=== PATIENT | male | born 1970 ===

== ENCOUNTER → 2024-04-20 14:17 | Outpatient (CLI) | payer OTHER, MEDICAID, SELFPAY ==
[2024-04-20 15:38] LABS: Hematocrit 42.3 % (41-53); Hemoglobin 14.5 g/dL (13.5-17.5); Mean Corpuscular HGB Conc 34.4 % (30-36); Mean Corpuscular Hemoglobin 30.1 PG (26-34); Mean Corpuscular Volume 87.6 fL (80-100); Platelet Count 225 X10^3/uL (150-400); Red Blood Cell Count 4.83 X10^6/uL (4.5-5.9); Red Cell Distribution Width 13.1 % (11.6-14.8); White Blood Cell Count 12.2 X10^3/uL (4.5-11.0)
[2024-04-20 15:43] LABS: Alanine Aminotransferase 47 IU/L (<50); Albumin 4.5 g/dL (3.5-5.0); Albumin Globulin Ratio 1.5 (1.0-2.8); Alkaline Phosphatase 93 U/L (38-126); Aspartate Aminotransferase 29 IU/L (17-59); BUN Creatinine Ratio 12.5 (6-22); Bilirubin Total 1.3 mg/dL (0.2-1.3); Blood Urea Nitrogen 13 mg/dL (9-20); Calcium 10.1 mg/dL (8.4-10.2); Carbon Dioxide 28 mmol/L (22-32); Chloride 101 mmol/L (98-107); Cholesterol 116 mg/dL (140-199); Estimated Glomerular Filt Rate > 60 mL/min (>60); Globulin 3.1 g/dL (1.7-4.1); Glucose 162 mg/dL (70-100); HDL Cholesterol 42 mg/dL (40-60); HEMOLYSIS < 15 (0-50); Hemoglobin A1C% w Est Avg Glu 6.3 % (4.0-6.0); LDL Cholesterol Calculated 33 mg/dL (<100); Potassium 4.7 mmol/L (3.4-5.1); Sodium 137 mmol/L (137-145); Total Protein 7.6 g/dL (6.3-8.2); Triglycerides 206 mg/dL (35-150)
[2024-04-20 16:10] LABS: Prostate Specific Antigen 0.895 ng/mL (0.10-4.00)
[2024-04-20 16:55] LABS: Creatinine Urine Random 156.68 mg/dL
[2024-04-20 17:01] LABS: Microalbumin Urine Random < 0.6 mg/dL (0-1.6)
== END ==
PROVIDERS: PCP Family Medicine; Referring Provider Family Medicine; Visit Provider Family Medicine
DX: I10 Essential (primary) hypertension (principal); I25.10 Atherosclerotic heart disease of native coronary artery without angina pectoris; E11.9 Type 2 diabetes mellitus without complications; Z95.1 Presence of aortocoronary bypass graft; Z86.73 Personal history of transient ischemic attack (TIA), and cerebral infarction without residual deficits; F17.220 Nicotine dependence, chewing tobacco, uncomplicated
CPT/HCPCS: 36415; 80053; 80061; 82043; 82570; 83036; 84153; 85027

== ENCOUNTER 2024-07-18 10:45 | Outpatient (RCR) | payer OTHER, MEDICAID, SELFPAY ==
--- NOTE | 2024-05-21 12:48 | OT.OP.EVAL ---
Visit Care Team Role Provider Type Lois Chowdary DO Attending Provider Physician Family Provider Primary Care Provider Referring Provider Specialty: Family Practice Address: [address] [place] [address], [address], [place], [address] Email: [email or web address] Occupational Therapy Initial Evaluation OT Outpatient Adult Evaluation Start: 05/21/24 12:09 Freq: Status: Active Protocol: Document 05/21/24 12:09 AMS (Rec: 05/21/24 12:47 AMS [id number]) General Information - Adult Plan of Care Dates 05/21/24 - 06/25/24 Insurance Information [employer]; *Max 24 PT/OT PCY Visit Start Time 11:15 Visit Stop Time 11:50 Treatment Setting Outpatient Care Note Type Initial Evaluation Goals Mcfp Goals 1. Maksim will be modified independent with execution of home exercise program referencing written/visual materials as needed. 2. Maksim will present with improved functional abilities; this will be evidenced by reduction in QuickDASH UE Outcome Measure Score of less than 20.00. 3. Maksim will present with improved fine motor coordination of the R hand; this will be evidenced by completing the 9-HPT with the R hand within 50 seconds (vs initial completion within 1 min 18 seconds). Assessment/Plan Treatment Assessment Damien Hallman) is a 54 y. o. male; right hand dominant; referred to outpatient OT d/t residual symptoms of stroke that occurred in November of 2023 . Medical history is significant for HTN; atherosclerotic heart disease; type II diabetes; quadruple bypass (2019). Maksim reported that he resides w/ his girlfriend and his 17 y.o. son ; he tries to remain busy by doing his exercises (walking, practicing handwriting), helping around the house/doing chores (such as doing the dishes/using the senior technical business analyst, vacuuming). 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 There are some STM difficulties which he problem solves by writing things down; may benefit from NURSE ORTHO referral given STM difficulties. QuickDASH UE Outcome Measure Score = 29.55. Good thumb opposition; able to execute bilaterally w/ EO and EC. B UE AROM WFL; symmetrical coordination of UEs with functional range of motion test; (-) R sided lag/ dyscoordination noted. Slight L midline shift w/ bringing hands together above head; able to self-correct 2nd trial without any visual feedback. Symmetrical coordination of bringing hands together at midline infront of body. The 9-Hole Peg Test is a timed test in which 9 pegs are inserted and removed from 9 holes in the pegboard with each hand. It is an assessment that can be used to assess hand dexterity. Maksim completed the test with his L hand in 31 seconds (vs 20.7 +/ - 2.3 sec norm for 50-54 y.o. males) and with his R hand in 1 min 18 sec first trial without elbow proximal stabilization and in 1 min 4 sec second trial w/ elbow proximal stabilization (vs 19. 2 +/- 1.8 sec norm for 50-54 y .o. males). Dynamometer II Strength Testing Results with elbow in 90 degrees Flexion = R ichthyology teacher 85 .0# of force (compared to same -aged peers 113.6 +/- 18.1# of force) versus L ichthyology teacher 102.0# of force (compared to same- aged peers 101.9 +/- 17.0# of force). Dynamometer II Strength Testing Results with Elbow Extended = R ichthyology teacher 80.0# of force versus L ichthyology teacher 93.0# of force. Lateral [place] Pinch = R lateral pinch 22.0# of force (compared to same-aged peers 26.7 +/- 4.4# of force) versus L lateral pinch 23.0# of force (compared to same-aged peers 26.1 +/- 4.2# of force). Tip Pinch = R tip pinch 22.5# of force (compared to same- aged peers 18.3 +/- 4.0# of force) versus L tip pinch 21.5 # of force (compared to same- aged peers 17.8 +/- 3.9# of force). 3-Jaw Pinch = R 3-jaw pinch 22.0# of force (compared to same-aged peers 23.8 +/- 5 .4# of force) versus L 3-jaw pinch 20.0# of force (compared to same-aged peers 24.0 +/- 5 .8# of force). Main concern is handwriting. Handwriting sample obtained. Thumb and 2nd pads positioned on standard width writing tool ; rests on 3rd digit. Reports increased legibility w/ slowing down self/pace of writing. (+) IPJ flexion observed w/ spirals. (+) waviness of lines noted w/ spirals. Please refer to scanned in paperwork for reference. OUtpatient OT to address fine motor coordination of R hand, handwriting, given that this is Maksim' main concern. Length of treatment (weeks) 5 Plan of Care Start Date 05/21/24 Plan of Care End Date 06/25/24 Treatment Frequency Once a Week Therapeutic Contents Active Range of Motion, Adaptive Equipment Education, Functional Activities,Home Exercise Program,Joint Protection,Education,Self-Care ,Therapeutic Activities, Therapeutic Exercises Suggested Referrals Speech Therapy
--- NOTE | 2024-05-31 15:38 | OT.OP.TRT ---
Visit Care Team Role Provider Type Lois Chowdary DO Attending Provider Physician Family Provider Primary Care Provider Referring Provider Specialty: Family Practice Address: [address] [place] [address], [address], [place], [address] Email: [email or web address] Occupational Therapy Treatment Note OT Outpatient Treatment Note - Adult Start: 05/21/24 12:09 Freq: Status: Active Protocol: Document 05/31/24 15:27 AMS (Rec: 05/31/24 15:38 AMS [id number]) OT Outpatient Adult Treatment Note Session Time Visit Start Time 11:15 Visit Stop Time 11:50 Visit Information Plan of Care Dates 05/21/24 - 06/25/24 Insurance Information [employer]; *Max 24 PT/OT PCY Setting Treatment Setting Outpatient Care Visit Type Note Type Treatment Note General Information General Information Damien Hallman) is a 54 y. o. male; right hand dominant; referred to outpatient OT d/t residual symptoms of stroke that occurred in November of 2023 . Medical history is significant for HTN; atherosclerotic heart disease; type II diabetes; quadruple bypass (2019). Maksim reported that he resides w/ his girlfriend and his 17 y.o. son ; he tries to remain busy by doing his exercises (walking, practicing handwriting), helping around the house/doing chores (such as doing the dishes/using the research physiologist, vacuuming). 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 There are some STM difficulties which he problem solves by writing things down; may benefit from UNDERWRITING SPECIALIST referral given STM difficulties. QuickDASH UE Outcome Measure Score = 29.55. - - Objective Objective Measurements Please refer to below for progress towards meeting established OT goals: Electronic Data Processing Auditor Goals 1. Maksim will be modified independent with execution of home exercise program referencing written/visual materials as needed. 2. Maksim will present with improved functional abilities; this will be evidenced by reduction in QuickDASH UE Outcome Measure Score of less than 20.00. 3. Maksim will present with improved fine motor coordination of the R hand; this will be evidenced by completing the 9-HPT with the R hand within 50 seconds (vs initial completion within 1 min 18 seconds). - Treatment 1 Descriptor In-hand manipulation. Thumb coordination. Translation. Rotation. Separation of 2 sides of the hand. CW rotation. x 2. Thumb walk 2nd -> 5th digit. x 1 Oppositional dissociation between digits. x 1 Radial sided obj manip/ rotation. x 2 Exercises 1 Descriptor UEB x 10 min. x 6 min forwards . x 4 min backwards. - Assessment Assessment of Improvement Maksim did quite well w/ UEB; no difficulties w/ initiating and/or maintaining grasp of UE handles despite multiple changes in direction. Orientation cues to machine only. Instructed in use of 1-2 small balls (practice golf ball size vs golf ball size) for in-hand coordination. Discussed proximal stabilization to support in- hand manipulation; did quite well w/ no significant distinction between use of arm rest vs TT for elbow stabilization and intermittent forearm support. Discussed use of TT to support R hand motor planning if concerned re : dropping of the ball/ retrieval. Rec that this exercise be considered for carry-over. Home Exercise Program 05/31/24 = In-hand manipulation w/ use of 2-practice golf balls vs bouncy balls vs golf balls. CW. Thumb walk. Opposition walk. - Plan Therapy Recommendations Advance per Rehabilitation Protocol
--- NOTE | 2024-07-02 15:41 | OT.OPPOC ---
Physical, Occupational & Speech Therapy At [facility] Damien Porter [id number] 1970 Visit Care Team Role Provider Type Lois Chowdary DO Attending Provider Physician Family Provider Primary Care Provider Referring Provider Address: [address] [place] [address], [facility] [address], [place], [address] Occupational Therapy Plan of Care OT Outpatient Adult Evaluation Start: 05/21/24 12:09 Freq: Status: Active Protocol: Document 05/21/24 12:09 [facility] (Rec: 05/21/24 12:47 [facility] [id number]) General Information - Adult Visit Information Plan of Care Dates 05/21/24 - 06/25/24 Insurance Information [employer]; *Max 24 PT/OT PCY Session Time Visit Start Time 11:15 Visit Stop Time 11:50 Setting Treatment Setting Outpatient Care Visit Type Note Type Initial Evaluation Goals Skilled Nursing Goals Learning Developer Goals 1. Maskim will be modified independent with execution of home exercise program referencing written/visual materials as needed. 2. Maksim will present with improved functional abilities; this will be evidenced by reduction in QuickDASH UE Outcome Measure Score of less than 20.00. 3. Maksim will present with improved fine motor coordination of the R hand; this will be evidenced by completing the 9-HPT with the R hand within 50 seconds (vs initial completion within 1 min 18 seconds). Assessment/Plan Assessment Treatment Assessment Damien Hallman) is a 54 y. o. male; right hand dominant; referred to outpatient OT d/t residual symptoms of stroke that occurred in November of 2023 . Medical history is significant for HTN; atherosclerotic heart disease; type II diabetes; quadruple bypass (2019). Maksim reported that he resides w/ his girlfriend and his 17 y.o. son ; he tries to remain busy by doing his exercises (walking, practicing handwriting), helping around the house/doing chores (such as doing the dishes/using the assistant reading teacher, vacuuming). 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 There are some STM difficulties which he problem solves by writing things down; may benefit from HOME BUILDER referral given STM difficulties. QuickDASH UE Outcome Measure Score = 29.55. Good thumb opposition; able to execute bilaterally w/ EO and EC. B UE AROM WFL; symmetrical coordination of UEs with functional range of motion test; (-) R sided lag/ dyscoordination noted. Slight L midline shift w/ bringing hands together above head; able to self-correct 2nd trial without any visual feedback. Symmetrical coordination of bringing hands together at midline infront of body. The 9-Hole Peg Test is a timed test in which 9 pegs are inserted and removed from 9 holes in the pegboard with each hand. It is an assessment that can be used to assess hand dexterity. Maksim completed the test with his L hand in 31 seconds (vs 20.7 +/ - 2.3 sec norm for 50-54 y.o. males) and with his R hand in 1 min 18 sec first trial without elbow proximal stabilization and in 1 min 4 sec second trial w/ elbow proximal stabilization (vs 19. 2 +/- 1.8 sec norm for 50-54 y .o. males). Dynamometer II Strength Testing Results with elbow in 90 degrees Flexion = R substation operator automatic 85 .0# of force (compared to same -aged peers 113.6 +/- 18.1# of force) versus L substation operator automatic 102.0# of force (compared to same- aged peers 101.9 +/- 17.0# of force). Dynamometer II Strength Testing Results with Elbow Extended = R substation operator automatic 80.0# of force versus L substation operator automatic 93.0# of force. Lateral [place] Pinch = R lateral pinch 22.0# of force (compared to same-aged peers 26.7 +/- 4.4# of force) versus L lateral pinch 23.0# of force (compared to same-aged peers 26.1 +/- 4.2# of force). Tip Pinch = R tip pinch 22.5# of force (compared to same- aged peers 18.3 +/- 4.0# of force) versus L tip pinch 21.5 # of force (compared to same- aged peers 17.8 +/- 3.9# of force). 3-Jaw Pinch = R 3-jaw pinch 22.0# of force (compared to same-aged peers 23.8 +/- 5 .4# of force) versus L 3-jaw pinch 20.0# of force (compared to same-aged peers 24.0 +/- 5 .8# of force). Main concern is handwriting. Handwriting sample obtained. Thumb and 2nd pads positioned on standard width writing tool ; rests on 3rd digit. Reports increased legibility w/ slowing down self/pace of writing. (+) IPJ flexion observed w/ spirals. (+) waviness of lines noted w/ spirals. Please refer to scanned in paperwork for reference. OUtpatient OT to address fine motor coordination of R hand, handwriting, given that this is Maksim' main concern. Plan Length of treatment (weeks) 5 Plan of Care Start Date 05/21/24 Plan of Care End Date 06/25/24 Treatment Frequency Once a Week Therapeutic Contents Active Range of Motion, Adaptive Equipment Education, Functional Activities,Home Exercise Program,Joint Protection,Education,Self-Care ,Therapeutic Activities, Therapeutic Exercises Suggested Referrals Speech Therapy Functional Wrist/Hand Scan Hand Side Sensory Assessment Sensory Profile2 OT Outpatient Treatment Note - Adult Start: 05/21/24 12:09 Freq: Status: Active Protocol: Document 07/02/24 15:32 [facility] (Rec: 07/02/24 15:41 [facility] [id number]) OT Outpatient Adult Treatment Note Session Time Visit Start Time 11:15 Visit Stop Time 11:50 Visit Information Plan of Care Dates 06/25/24 - 07/30/24 Insurance Information [employer]; *Max 24 PT/OT PCY Setting Treatment Setting Outpatient Care Visit Type Note Type Progress Note General Information General Information Damien Hallman) is a 54 y. o. male; right hand dominant; referred to outpatient OT d/t residual symptoms of stroke that occurred in November of 2023 . Medical history is significant for HTN; atherosclerotic heart disease; type II diabetes; quadruple bypass (2019). Maksim reported that he resides w/ his girlfriend (Nicole) and his 17 y. o. son; he tries to remain busy by doing his exercises ( walking, practicing handwriting), helping around the house/doing chores (such as doing the dishes/using the assistant reading teacher, vacuuming). 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 There are some STM difficulties which he problem solves by writing things down; may benefit from HOME BUILDER referral given STM difficulties. QuickDASH UE Outcome Measure Score = 29.55. - Subjective Identification Type Name Observations Maksim reports that he is using ping pong balls at home; he stated that he has broken quite a few of them and that they are much litigation legal secretary then the practice foam/golf balls that he has been using in clinic. He reported impaired sensation of the R hand primarily of the thumb; he stated that it seems to get better as the day goes on. - Objective Objective Measurements Please refer to below for progress towards meeting established OT goals: Learning Developer Goals 1. Maksim will be modified independent with execution of home exercise program referencing written/visual materials as needed. 07/02/24 = 50% met 2. Maksim will present with improved functional abilities; this will be evidenced by reduction in QuickDASH UE Outcome Measure Score of less than 20.00. 3. Maksim will present with improved fine motor coordination of the R hand; this will be evidenced by completing the 9-HPT with the R hand within 50 seconds (vs initial completion within 1 min 18 seconds). - Treatment 1 Descriptor In-hand manipulation. Thumb coordination. Translation. Rotation. Separation of 2 sides of the hand. CW rotation. x 5 CCW rotation. x 5 Thumb walk 2nd -> 5th digit. x 5 Oppositional dissociation between digits. x 5 Tossing ball between hands. x 20. Ping pong ball single bounce between hands. x 20. Ping pong ball single bounce onto TT, forearm pronation. x 20. Forearm supination. x 20. Exercises 1 Descriptor UEB x 10 min. x 6 min forwards . x 4 min backwards. - Assessment Assessment of Improvement Maksim has required less proximal UE support for success w/ R hand in-hand manipulation activities, as well as w/ unilateral R UE and bimanual UE eye-hand coordination activities. Clinician advanced unimanual and bimanual UE exercises in this date; rec execution of in -hand manipulation and eye- hand coordination activities over table to support management of foam or ping pong balls. Cont outpatient OT services rec to advance HEP as tolerated. Home Exercise Program 05/31/24 = In-hand manipulation w/ use of 2-practice golf balls vs bouncy balls vs golf balls. CW. Thumb walk. Opposition walk. - Plan Therapy Recommendations Advance per Rehabilitation Protocol Comment 5 weeks Frequency of Treatment Once a Week Therapeutic Contents Active Range of Motion, Functional Activities,Home Exercise Program,Joint Protection,Manual Therapy, Education,Self-Care, Therapeutic Activities, Therapeutic Exercises Electronically Signed by: Delfina Celis OT 07/02/24 6401 If you are in agreement with this Plan of Care, please return a signed and dated copy. I have reviewed this Plan of Care and certify that the skilled therapy services above are required to meet the patient?s needs. Physician Signature Date Printed Name and Credentials Clinical Instructor Signature Printed Name and Credentials
--- NOTE | 2024-07-10 12:31 | OT.OP.TRT ---
Visit Care Team Role Provider Type Lois Chowdary DO Attending Provider Physician Family Provider Primary Care Provider Referring Provider Specialty: Family Practice Address: [address] [place] [address], [address], [place], [address] Email: [email or web address] Occupational Therapy Treatment Note OT Outpatient Treatment Note - Adult Start: 05/21/24 12:09 Freq: Status: Active Protocol: Document 07/10/24 12:26 AMS (Rec: 07/10/24 12:30 AMS [id number]) OT Outpatient Adult Treatment Note Session Time Visit Start Time 11:45 Visit Stop Time 12:15 Visit Information Plan of Care Dates 06/25/24 - 07/30/24 Insurance Information [employer]; *Max 24 PT/OT PCY Setting Treatment Setting Outpatient Care Visit Type Note Type Treatment Note General Information General Information Damien Hallman) is a 54 y. o. male; right hand dominant; referred to outpatient OT d/t residual symptoms of stroke that occurred in November of 2023 . Medical history is significant for HTN; atherosclerotic heart disease; type II diabetes; quadruple bypass (2019). Maksim reported that he resides w/ his girlfriend (Nicole) and his 17 y. o. son; he tries to remain busy by doing his exercises ( walking, practicing handwriting), helping around the house/doing chores (such as doing the dishes/using the french teacher, vacuuming). 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 There are some STM difficulties which he problem solves by writing things down; may benefit from SENIOR CORPORATE RECRUITER referral given STM difficulties. QuickDASH UE Outcome Measure Score = 29.55. - Subjective Identification Type Name Observations Maksim reports that he is using ping pong balls at home; he stated that he has broken quite a few of them and that they are much water tester then the practice foam/golf balls that he has been using in clinic. He reported impaired sensation of the R hand primarily of the thumb; he stated that it seems to get better as the day goes on. - Objective Objective Measurements Please refer to below for progress towards meeting established OT goals: Finance Associate Goals 1. Maksim will be modified independent with execution of home exercise program referencing written/visual materials as needed. 07/02/24 = 50% met 2. Maksim will present with improved functional abilities; this will be evidenced by reduction in QuickDASH UE Outcome Measure Score of less than 20.00. 3. Maksim will present with improved fine motor coordination of the R hand; this will be evidenced by completing the 9-HPT with the R hand within 50 seconds (vs initial completion within 1 min 18 seconds). - Treatment 2 Descriptor Eye-hand coordination. 500 grams. Angled Trampoline. Standing. R handed throw and catch. 1 x 10. Alt throw and catch. 2 x 10. Square. 3 x 10. 1 Descriptor In-hand manipulation. Thumb coordination. Translation. Rotation. Separation of 2 sides of the hand. CW rotation. x 5 CCW rotation. x 5 N/A 07/10/24 Thumb walk 2nd -> 5th digit. x 5 Oppositional dissociation between digits. x 5 Tossing ball between hands. x 20. Ping pong ball single bounce between hands. x 20. Ping pong ball single bounce onto TT, forearm pronation. x 20. Forearm supination. x 20. Exercises 1 Descriptor UEB x 10 min. Seated. Height # 4. x 5 min forwards. x 5 min backwards. - Assessment Assessment of Improvement Maksim reported that Nicole has ordered weighted stress balls for practicing of in-hand manipulation; she ordered them through [employer]; they are awaiting their arrival. Did quite well w/ eye-hand coordination activities in standing w/ use of angled trampoline and 500 grams weighted ball. Cont outpatient OT services rec to advance HEP as tolerated. Home Exercise Program 05/31/24 = In-hand manipulation w/ use of 2-practice golf balls vs bouncy balls vs golf balls. CW. Thumb walk. Opposition walk. - Plan Therapy Recommendations Advance per Rehabilitation Protocol
--- NOTE | 2024-07-18 12:21 | OT.OP.TRT ---
Visit Care Team Role Provider Type Lois Chowdary DO Attending Provider Physician Family Provider Primary Care Provider Referring Provider Specialty: Family Practice Address: [address] [place] [address], [address], [place], [address] Email: [email or web address] Occupational Therapy Treatment Note OT Outpatient Treatment Note - Adult Start: 05/21/24 12:09 Freq: Status: Active Protocol: Document 07/18/24 12:17 AMS (Rec: 07/18/24 12:21 AMS [id number]) OT Outpatient Adult Treatment Note Session Time Visit Start Time 11:00 Visit Stop Time 11:30 Visit Information Plan of Care Dates 06/25/24 - 07/30/24 Insurance Information [employer]; *Max 24 PT/OT PCY Setting Treatment Setting Outpatient Care Visit Type Note Type Treatment Note General Information General Information Damien Hallman) is a 54 y. o. male; right hand dominant; referred to outpatient OT d/t residual symptoms of stroke that occurred in November of 2023 . Medical history is significant for HTN; atherosclerotic heart disease; type II diabetes; quadruple bypass (2019). Maksim reported that he resides w/ his girlfriend (Nicole) and his 17 y. o. son; he tries to remain busy by doing his exercises ( walking, practicing handwriting), helping around the house/doing chores (such as doing the dishes/using the search engine marketing manager, vacuuming). 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 There are some STM difficulties which he problem solves by writing things down; may benefit from INSEAM TRIMMER referral given STM difficulties. QuickDASH UE Outcome Measure Score = 29.55. - Subjective Identification Type Name Observations Maksim reports that he is using ping pong balls at home; he stated that he has broken quite a few of them. He reported impaired sensation of the R hand primarily of the thumb; he stated that it seems to get better as the day goes on. - Objective Objective Measurements Please refer to below for progress towards meeting established OT goals: Coding Clerk Goals 1. Maksim will be modified independent with execution of home exercise program referencing written/visual materials as needed. 07/02/24 = 50% met 2. Maksim will present with improved functional abilities; this will be evidenced by reduction in QuickDASH UE Outcome Measure Score of less than 20.00. 3. Maksim will present with improved fine motor coordination of the R hand; this will be evidenced by completing the 9-HPT with the R hand within 50 seconds (vs initial completion within 1 min 18 seconds). - Treatment 2 Descriptor Eye-hand coordination. 3.3# weighted spherical ball. Angled Trampoline. Standing. R handed throw and catch. 2 x 10. Alt throw and catch. 3 x 10. R handed throw and catch. Formation of a square. 3 x 10. 1 Descriptor In-hand manipulation. Thumb coordination. Translation. Rotation. Separation of 2 sides of the hand. CW rotation. x 5 CCW rotation. x 5 Ping pong ball single bounce onto TT, forearm pronation. x 20. N/A 07/10/24 Thumb walk 2nd -> 5th digit. x 5 Oppositional dissociation between digits. x 5 Tossing ball between hands. x 20. Ping pong ball single bounce between hands. x 20. Ping pong ball single bounce onto TT, forearm pronation. x 20. Forearm supination. x 20. Exercises 1 Descriptor UEB x 10 min. Seated. Height # 4. x 5 min forwards. x 5 min backwards. - Assessment Assessment of Improvement Reports primarily using ping pong balls at home for in-hand manipulation/eye-hand coordination activities; reports breaking a number of them. Did quite well w/ eye- hand coordination activities in standing w/ use of angled trampoline and 3.3# weighted spherical ball in session. Cont outpatient OT services rec to advance HEP as tolerated. Home Exercise Program 05/31/24 = In-hand manipulation w/ use of 2-practice golf balls vs bouncy balls vs golf balls. CW. Thumb walk. Opposition walk. - Plan Therapy Recommendations Advance per Rehabilitation Protocol
--- NOTE | 2024-08-20 12:32 | OT.OP.DC ---
Visit Care Team Role Provider Type Lois Chowdary DO Attending Provider Physician Family Provider Primary Care Provider Referring Provider Address: [address] [place] [address], [address], [place], [address] Email: [email or web address] Outpatient OT Outpatient Adult Evaluation Start: 05/21/24 12:09 Freq: Status: Active Protocol: Document 05/21/24 12:09 AMS (Rec: 05/21/24 12:47 AMS [id number]) General Information - Adult Visit Information Plan of Care Dates 05/21/24 - 06/25/24 Insurance Information [employer]; *Max 24 PT/OT PCY Session Time Visit Start Time 11:15 Visit Stop Time 11:50 Setting Treatment Setting Outpatient Care Visit Type Note Type Initial Evaluation Goals Acute Care Nurse Goals Acute Care Nurse Goals 1. Maksim will be modified independent with execution of home exercise program referencing written/visual materials as needed. 2. Maksim will present with improved functional abilities; this will be evidenced by reduction in QuickDASH UE Outcome Measure Score of less than 20.00. 3. Maksim will present with improved fine motor coordination of the R hand; this will be evidenced by completing the 9-HPT with the R hand within 50 seconds (vs initial completion within 1 min 18 seconds). Assessment/Plan Assessment Treatment Assessment Damien Hallman) is a 54 y. o. male; right hand dominant; referred to outpatient OT d/t residual symptoms of stroke that occurred in November of 2023 . Medical history is significant for HTN; atherosclerotic heart disease; type II diabetes; quadruple bypass (2019). Maksim reported that he resides w/ his girlfriend and his 17 y.o. son ; he tries to remain busy by doing his exercises (walking, practicing handwriting), helping around the house/doing chores (such as doing the dishes/using the local area network administrator, vacuuming). 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 There are some STM difficulties which he problem solves by writing things down; may benefit from PEANUT FARMER referral given STM difficulties. QuickDASH UE Outcome Measure Score = 29.55. Good thumb opposition; able to execute bilaterally w/ EO and EC. B UE AROM WFL; symmetrical coordination of UEs with functional range of motion test; (-) R sided lag/ dyscoordination noted. Slight L midline shift w/ bringing hands together above head; able to self-correct 2nd trial without any visual feedback. Symmetrical coordination of bringing hands together at midline infront of body. The 9-Hole Peg Test is a timed test in which 9 pegs are inserted and removed from 9 holes in the pegboard with each hand. It is an assessment that can be used to assess hand dexterity. Maksim completed the test with his L hand in 31 seconds (vs 20.7 +/ - 2.3 sec norm for 50-54 y.o. males) and with his R hand in 1 min 18 sec first trial without elbow proximal stabilization and in 1 min 4 sec second trial w/ elbow proximal stabilization (vs 19. 2 +/- 1.8 sec norm for 50-54 y .o. males). Dynamometer II Strength Testing Results with elbow in 90 degrees Flexion = R display and banner designer 85 .0# of force (compared to same -aged peers 113.6 +/- 18.1# of force) versus L display and banner designer 102.0# of force (compared to same- aged peers 101.9 +/- 17.0# of force). Dynamometer II Strength Testing Results with Elbow Extended = R display and banner designer 80.0# of force versus L display and banner designer 93.0# of force. Lateral [place] Pinch = R lateral pinch 22.0# of force (compared to same-aged peers 26.7 +/- 4.4# of force) versus L lateral pinch 23.0# of force (compared to same-aged peers 26.1 +/- 4.2# of force). Tip Pinch = R tip pinch 22.5# of force (compared to same- aged peers 18.3 +/- 4.0# of force) versus L tip pinch 21.5 # of force (compared to same- aged peers 17.8 +/- 3.9# of force). 3-Jaw Pinch = R 3-jaw pinch 22.0# of force (compared to same-aged peers 23.8 +/- 5 .4# of force) versus L 3-jaw pinch 20.0# of force (compared to same-aged peers 24.0 +/- 5 .8# of force). Main concern is handwriting. Handwriting sample obtained. Thumb and 2nd pads positioned on standard width writing tool ; rests on 3rd digit. Reports increased legibility w/ slowing down self/pace of writing. (+) IPJ flexion observed w/ spirals. (+) waviness of lines noted w/ spirals. Please refer to scanned in paperwork for reference. OUtpatient OT to address fine motor coordination of R hand, handwriting, given that this is Maksim' main concern. Plan Length of treatment (weeks) 5 Plan of Care Start Date 05/21/24 Plan of Care End Date 06/25/24 Treatment Frequency Once a Week Therapeutic Contents Active Range of Motion, Adaptive Equipment Education, Functional Activities,Home Exercise Program,Joint Protection,Education,Self-Care ,Therapeutic Activities, Therapeutic Exercises Suggested Referrals Speech Therapy Functional Wrist/Hand Scan Hand Side Sensory Assessment Sensory Profile2 OT Outpatient Treatment Note - Adult Start: 05/21/24 12:09 Freq: Status: Active Protocol: Document 08/20/24 12:30 AMS (Rec: 08/20/24 12:32 AMS [id number]) OT Outpatient Adult Treatment Note Visit Information Plan of Care Dates 06/25/24 - 07/30/24 Insurance Information [employer]; *Max 24 PT/OT PCY Setting Treatment Setting Outpatient Care Visit Type Note Type Discharge Summary - Subjective Observations Maksim has not been seen in the outpatient setting by OT since 07/18/24 and outpatient OT POC on 07/30/24; thus, recommend d/c from outpatient OT at this time and therapist to re-evaluate as deemed appropriate by PCP with receipt of new referral for OT. - Objective Objective Measurements Please refer to below for progress towards meeting established OT goals: Acute Care Nurse Goals ALL GOALS D/C 08/20/24 1. Maksim will be modified independent with execution of home exercise program referencing written/visual materials as needed. 07/02/24 = 50% met 2. Maksim will present with improved functional abilities; this will be evidenced by reduction in QuickDASH UE Outcome Measure Score of less than 20.00. 3. Maksim will present with improved fine motor coordination of the R hand; this will be evidenced by completing the 9-HPT with the R hand within 50 seconds (vs initial completion within 1 min 18 seconds). - - Assessment Assessment of Improvement Maksim has not been seen in the outpatient setting by OT since 07/18/24 and outpatient OT POC on 07/30/24; thus, recommend d/c from outpatient OT at this time and therapist to re-evaluate as deemed appropriate by PCP with receipt of new referral for OT. - Plan Therapy Recommendations Discharge from Occupational Therapy
== END 2024-08-29 14:37 | disposition home or self-care (01) ==
LOC: OT 10:45
PROVIDERS: Family Provider Family Medicine; PCP Family Medicine; Referring Provider Family Medicine; Visit Provider Family Medicine
DX: Z86.73 Personal history of transient ischemic attack (TIA), and cerebral infarction without residual deficits (principal); I10 Essential (primary) hypertension; I25.10 Atherosclerotic heart disease of native coronary artery without angina pectoris; E11.9 Type 2 diabetes mellitus without complications; Z95.1 Presence of aortocoronary bypass graft; F17.220 Nicotine dependence, chewing tobacco, uncomplicated; R27.8 Other lack of coordination
CPT/HCPCS: 97110; 97165

== ENCOUNTER → 2024-07-20 14:03 | Outpatient (CLI) | payer OTHER, MEDICAID, SELFPAY ==
[2024-07-20 14:36] LABS: Hemoglobin A1C% w Est Avg Glu 6.7 % (4.0-6.0)
[2024-07-20 15:12] LABS: BUN Creatinine Ratio 14.2 (6-22); Blood Urea Nitrogen 17 mg/dL (9-20); Calcium 9.8 mg/dL (8.4-10.2); Carbon Dioxide 27 mmol/L (22-32); Chloride 98 mmol/L (98-107); Estimated Glomerular Filt Rate > 60 mL/min (>60); Glucose 171 mg/dL (70-100); HEMOLYSIS < 15 (0-50); Potassium 4.5 mmol/L (3.4-5.1); Sodium 134 mmol/L (137-145)
== END ==
PROVIDERS: Family Provider Family Medicine; PCP Family Medicine; Referring Provider Family Medicine; Visit Provider Family Medicine
DX: E11.9 Type 2 diabetes mellitus without complications (principal); I50.30 Unspecified diastolic (congestive) heart failure
CPT/HCPCS: 80048; 83036

== ENCOUNTER 2024-07-25 14:30 | Outpatient (RCR) | payer OTHER, MEDICAID, SELFPAY ==
--- NOTE | 2024-07-03 12:34 | ST.OPIE ---
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 Lois Chowdary Reason for Referral Memory impairment s/p CVA Setting Assessment Location Outpatient Care Visit Type Note Type Initial evaluation Next Note Type Next Note Type Treatment Note Patient Information Identification Type Name Patient History Pt is a 54 year old male seen this date for cognitive- linguistic evaluation d/t memory impairment s/p CVA that occurred in November 2023. 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 After being in the hospital down in [place] and getting in home therapy he returned back up to [place] the end of February. He states residual symptoms that remain include: right arm fine motor control, visual neglect, and short term memory deficits. He reports improvements with his short term memory, however continues with difficulties. He states he has to write everything down to assist with recall. He states worse recall during the beginning of the day. PMHx significant for : quad bipass 3-4 years ago. He is currently not working and lives with his son who is 17 years old and his girlfriend. He states he can do most ADL, however has lingering short term memory impairments. Hearing Hearing Level Normal Previous Therapy Previous Speech-Language Therapy No Subjective Mental Status Alert,Responsive,Cooperative Assessment Oral Motor Examination Completed Yes Results OME revealed WFL oromusculature Informal Assessment Receptive Language Normal Yes Expressive Language Normal Yes Pragmatic Language Normal Yes Speech Normal Yes Cognition Normal No Cognitive Impairment(s) Short-term memory Formal Assessment Standardized Test/Screener Type Cognitive Linguistic Quick Test (CLQT) Administration Incomplete Results ST initiated Cognitive- Linguistic Quick Test (CLQT), which was not completed d/t timing. However, will be completed during next appointment. Pt completed the following tasks/scores: Personal Facts: 04/19 Symbol Cancellation: 07/24 Confrontation Namin/10 Clock Drawin/13 Story recallin03/21 Symbol trails: 06/21 Pt exhibited most deficits with short term memory recall and strengths with problem solving and following directions. Findings/Results Language Function Within functional limits Cognitive Function Mildly impaired Findings Pt presents with mild cognitive-communication deficit (R41.841), however ST to complete testing during next session to get a better picture into severity of deficits. Cognitive Communication Deficits Self-awareness of Cognitive- Predictive awareness (able to Communication Deficits predict problem; impact of impairments) Prognosis Prognosis Good Based on Cognitive status,Family support,Time since onset Plan of Care Speech-Language Treatment Yes Frequency 1x/week Duration 3 months Patient/Caregiver Education Patient expressed agreement with goals and treatment plans ,Patient requires further education/training Short Term Goals STG 1: Patient will demonstrate increase short term recall for functional/ daily life information with 90 % of opportunities given environmental modifications implemented and by using visual aids in order to promote carryove. Longterm Goals LTG 1: Patient will increase memory skills using compensatory strategies as trained, using visual/auditory aids as needed in order increase safety during ADLs and promote independence.
--- NOTE | 2024-07-03 12:34 | ST.OPPOC ---
Physical, Occupational & Speech Therapy At [facility] Visit Care Team Role Provider Type Lois Chowdary DO Attending Provider Physician Family Provider Primary Care Provider Referring Provider Address: [address] [place] [address], [address], [place], [address] Speech Pathology Plan of Care Plan of Care Dates 07/02/24-10/02/[address] Lois Chowdary Patient History Pt is a 54 year old male seen this date for cognitive-linguistic evaluation d/t memory impairment s/p CVA that occurred in November 2023. 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 After being in the hospital down in [place] and getting in home therapy he returned back up to [place] the end of February. He states residual symptoms that remain include: right arm fine motor control, visual neglect, and short term memory deficits. He reports improvements with his short term memory, however continues with difficulties. He states he has to write everything down to assist with recall. He states worse recall during the beginning of the day. PMHx significant for: quad bipass 3-4 years ago. He is currently not working and lives with his son who is 17 years old and his girlfriend. He states he can do most ADL, however has lingering short term memory impairments. Self-awareness of Cognitive- Predictive awareness (abl Communication Deficits Short Term Goals STG 1: Patient will demonstrate increase short term recall for functional/daily life information with 90% of opportunities given environmental modifications implemented and by using visual aids in order to promote carryove. Prison Goals LTG 1: Patient will increase memory skills using compensatory strategies as trained, using visual/auditory aids as needed in order increase safety during ADLs and promote independence. Comment: Electronically Signed by: RIVERA Carr 07/03/24 1263 If you are in agreement with this Plan of Care, please return a signed and dated copy. I have reviewed this Plan of Care and certify that the skilled therapy services above are required to meet the patient?s needs. Physician Signature Date Printed Name and Credentials Clinical Instructor Signature Printed Name and Credentials
--- NOTE | 2024-07-11 15:06 | ST.OPTN ---
Visit Care Team Role Provider Type Lois Chowdary DO Attending Provider Physician Family Provider Primary Care Provider Referring Provider Address: [address] [place] [address], [address], [place], [address] MELLOWING MACHINE OPERATOR Treatment Note MELLOWING MACHINE OPERATOR Treatment Note Start: 07/11/24 14:59 Freq: Status: Active Protocol: Document 07/11/24 14:59 MA (Rec: 07/11/24 15:06 MA [id number]) Speech Pathology Treatment Note Session Time Visit Start Time 14:30 Visit Stop Time 15:00 Total Visit Minutes 30 Visit Information Visit Number 2 Plan of Care Dates 07/02/24-10/02/24 Setting Treatment Setting Outpatient Care Next Note Type Next Note Type Treatment Note General Information Patient History Pt is a 54 year old male seen this date for cognitive- linguistic evaluation d/t memory impairment s/p CVA that occurred in November 2023. Pt reports he was driving down in [place] where he works part of the year when he had it. After being in the hospital down in [place] and getting in home therapy he returned back up to [place] the end of February. He states residual symptoms that remain include: right arm fine motor control, visual neglect, and short term memory deficits. He reports improvements with his short term memory, however continues with difficulties. He states he has to write everything down to assist with recall. He states worse recall during the beginning of the day. PMHx significant for : quad bipass 3-4 years ago. He is currently not working and lives with his son who is 17 years old and his girlfriend. He states he can do most ADL, however has lingering short term memory impairments. Subjective Identification Type Name Observations/Patient Presentation Pt arrived on time to therapy. Objective Short Term Goals STG 1: Patient will demonstrate increase short term recall for functional/ daily life information with 90 % of opportunities given environmental modifications implemented and by using visual aids in order to promote carryove. Rail Switch Operator Goals LTG 1: Patient will increase memory skills using compensatory strategies as trained, using visual/auditory aids as needed in order increase safety during ADLs and promote independence. Treatment Activities Completioni of CLQT, education on internal and external memory aids Assessment Patient Response to Treatment Excellent Rehab Potential Excellent Impairments Identified Cognitive communication Assessment of Improvement Pt reports continued difficulties with short term memory that comes and go. He reports he continues to write everything down to assist with memory recall and will forget things told to him if he doesn't write them down. ST provided educational handouts on internal and external memory strategies and recommended Pt read through them and work on practicing them outside of therapy. Pt verbalized understanding. For the CLQT, Pt scored a total score of 3.6 indicating a severity rating of WNL, however Pt was on the cusp on scoring mild deficit. He demonstrated mild deficits in memory and visuospatial skills and strengths in attention and executive functions. ST plan to review CLQT with Pt during next session and practice utilizing memory strategies.
--- NOTE | 2024-07-18 15:08 | ST.OPTN ---
Visit Care Team Role Provider Type Lois Chowdary DO Attending Provider Physician Family Provider Primary Care Provider Referring Provider Address: [address] [place] [address], [address], [place], [address] SCIENTIFIC INFORMATICS LEADER Treatment Note SCIENTIFIC INFORMATICS LEADER Treatment Note Start: 07/11/24 14:59 Freq: Status: Active Protocol: Document 07/18/24 14:51 MA (Rec: 07/18/24 15:08 MA [id number]) Speech Pathology Treatment Note Session Time Visit Start Time 14:30 Visit Stop Time 15:00 Total Visit Minutes 30 Visit Information Visit Number 3 Plan of Care Dates 07/02/24-10/02/24 Setting Treatment Setting Outpatient Care Next Note Type Next Note Type Treatment Note General Information Patient History Pt is a 54 year old male seen this date for cognitive- linguistic evaluation d/t memory impairment s/p CVA that occurred in November 2023. 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 After being in the hospital down in [place] and getting in home therapy he returned back up to [place] the end of February. He states residual symptoms that remain include: right arm fine motor control, visual neglect, and short term memory deficits. He reports improvements with his short term memory, however continues with difficulties. He states he has to write everything down to assist with recall. He states worse recall during the beginning of the day. PMHx significant for : quad bipass 3-4 years ago. He is currently not working and lives with his son who is 17 years old and his girlfriend. He states he can do most ADL, however has lingering short term memory impairments. Subjective Identification Type Name Observations/Patient Presentation Pt arrived on time to therapy. Objective Short Term Goals STG 1: Patient will demonstrate increase short term recall for functional/ daily life information with 90 % of opportunities given environmental modifications implemented and by using visual aids in order to promote carryove. Consulting It Architect Goals LTG 1: Patient will increase memory skills using compensatory strategies as trained, using visual/auditory aids as needed in order increase safety during ADLs and promote independence. Treatment Activities Review of CLQT results, education on internal and external memory aids and practice utilizing strategies during memory exercises Assessment Patient Response to Treatment Excellent Rehab Potential Excellent Impairments Identified Cognitive communication Assessment of Improvement Pt reports continued difficulties with short term memory that comes and go. He reports he continues to write everything down to assist with memory recall and will forget things told to him if he doesn't write them down. 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 ST recommended Pt write down steps on how to complete tasks when web designing. ST reviewed CLQT results with Pt. He reports he has trouble remembering small things but can remember more important items such as when his appointments are scheduled. ST educated Pt on importance of attention when it comes to recall and remembering things and that the more attention or focus on something the better it will be recalled. Pt verbalized understanding. ST educated Pt on internal memory strategies such as making word associations and chaining word lists to assist with recall. He recalled a list of 10 with use of association strategy with 40% accuracy, 100% accuracy with 3 words and 100% with 4 words. For chaining word lists with part/ whole word categories he recalled 3-4 words at a time with about 66% accuracy. ST educated Pt on POC and to practice utilizing strategies at home. Pt verbalized understanding. Reviewed with Patient Goals,Progress Being Made
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
== END 2024-08-03 10:48 | disposition home or self-care (01) ==
LOC: SP 14:30
PROVIDERS: Family Provider Family Medicine; PCP Family Medicine; Referring Provider Family Medicine; Visit Provider Family Medicine
DX: R41.3 Other amnesia (principal)
CPT/HCPCS: 92507; 92523

== ENCOUNTER 2024-09-10 13:45 | Outpatient (RCR) | payer OTHER, MEDICAID, SELFPAY ==
--- NOTE | 2024-06-20 17:55 | PT.OIE ---
Current Diagnoses Type 2 diabetes mellitus without complications (06/20/24) Nicotine dependence, chewing tobacco, uncomplicated (06/20/24) Essential (primary) hypertension (06/20/24) Atherosclerotic heart disease of [place] coronary artery without angina pectoris (06/20/24) Personal history of transient ischemic attack (TIA), and cerebral infarction without residual deficits (06/20/24) Arthrodesis status (06/20/24) Past Medical History (Last Updated 04/30/24 @ 19:26 by Batool Norris) Benign essential HTN CAD (coronary artery disease) (~2019) Chewing tobacco dependence Diastolic heart failure (~2019) History of stroke Hyperlipidemia Hypertension (~2019) Stroke (~11/2023) Type 2 diabetes mellitus without complication, with no history of insulin use (~2019) Vision disorder Past Surgical History (Last Updated 04/30/24 @ 19:26 by Batool Norris) Anesthesia History of quadruple bypass (~2019) Visit Care Team Role Provider Type Lois Chowdary DO Attending Provider Physician Family Provider Primary Care Provider Referring Provider Specialty: Family Practice Address: [address] [place] [address], [facility] Email: [email or web address] Physical Therapy Initial Evaluation PT-OP-A Visit Information Start: 05/31/24 10:20 Freq: Status: Active Protocol: Document 06/20/24 14:33 [facility] (Rec: 06/20/24 18:01 [facility] [id number]) Out-Patient Physical Therapy Visit Information Visit Information Visit Type Initial Evaluation Visit Note 24 total OT/PT combined Visit Start Time 14:35 Visit Stop Time 15:18 Visit Number 1 Number of POLICE AND FIRE DISPATCHER Visits 0 PT-OP-B Current Condition Start: 05/31/24 10:20 Freq: Status: Active Protocol: Document 06/20/24 14:33 [facility] (Rec: 06/20/24 18:01 [facility] [id number]) Current Condition History of Current Condition Onset Date November 2023 Current Complaints CVA affecting R side History of Current Condition Pt had CVA in November. Pt reports he wants his RUE to be able to do more. He wants exercsies for getting R arm working and Rleg. In November, he barely had use of RUE and LE. Short term memory is affected . Pt reports w/R eye has some difficulty seeing out to the side of him. Pt reports normal day to day functions he can do. Fine detail things are the trickiest. 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 Does have hx of 2 heart attacks also. Pt reports balance affected by stroke but is better since. Feels like he is almost to the point whee he could start jogging. Walking 3 miles to and 3 miles back from store about 5 days a week . Prior to CVA was not extremely active besides job. Treatment Goals Patient/Caregiver Goals Improve strength PT-OP-D Balance Start: 05/31/24 10:20 Freq: Status: Active Protocol: Document 06/20/24 14:33 [facility] (Rec: 06/20/24 18:01 [facility] [id number]) Balance Tests Single Limb Standing Single Limb- Right 3 sec Single Limb- Left 8 sec PT-OP-E Functional Tests Start: 05/31/24 10:20 Freq: Status: Active Protocol: Document 06/20/24 14:33 [facility] (Rec: 06/20/24 18:01 [facility] [id number]) Functional Tests 30 Second Sit to Stand Test Score 15 Functional Gait Assessment Score 21 PT-OP-M Strength Start: 05/31/24 10:20 Freq: Status: Active Protocol: Document 06/20/24 14:33 [facility] (Rec: 06/20/24 18:01 [facility] [id number]) Hip Strength Hip Manual Muscle Testing Right Flexion (L2) 4- Good- Extension (S1) 4+ Good+ Abduction 4 Good External Rotation 4+ Good+ Internal Rotation 5 Normal Left Flexion (L2) 4+ Good+ Extension (S1) 5 Normal Abduction 5 Normal External Rotation 5 Normal Internal Rotation 5 Normal Knee Strength Knee Manual Muscle Testing Right Flexion (S2) 5 Normal Extension (L3) 5 Normal Left Flexion (S2) 5 Normal Extension (L3) 5 Normal Ankle/Foot Strength Ankle and Foot Manual Muscle Testing Right Dorsiflexion (L4) 5 Normal Plantarflexion (S1) 4+ Good+ Comments 20 heel raises min cues for avoiding knee bend Left Dorsiflexion (L4) 5 Normal Plantarflexion (S1) 5 Normal Comments 20 heel raises min cues for avoiding knee bend especially last 6reps PT-OP-Q Treatments Start: 05/31/24 10:20 Freq: Status: Active Protocol: Document 06/20/24 14:33 [facility] (Rec: 06/20/24 18:01 [facility] [id number]) Therapeutic Exercises Standing Exercises sidestep Side bilateral Equipment Used L2 Reps/Minutes 20ft sit to stand Side bilateral Reps/Minutes 2x15 heel raises Side bilateral Reps/Minutes 20 Neuro Re-Education Treatment Balance Activities SLS Details b trials tandem Details B trials Self-Care/Home Management Treatment Education Other Education 8 min: edu re: difference from PT, OT, ASSOCIATE SPA DIRECTOR and what they each do. Discussed if still feels like memory is an mary alice than ASSOCIATE SPA DIRECTOR may be very helpful for pt. Pt educated on findings of eval and that d/t his age and his typical level of function there is still a lot to work on for balance and strength PT-OP-T Assessment and Plan Start: 05/31/24 10:20 Freq: Status: Active Protocol: Document 06/20/24 14:33 [facility] (Rec: 06/20/24 18:01 [facility] [id number]) Physical Therapy Assessment Rehab Potential Rehabilitation Potential Good Evaluation Complexity Number of Personal Factors/Comorbidities 1-2 Number of Body Systems Impaired 4 or More Clinical Presentation at Evaluation Evolving Impairments Impairments Activity Tolerance,Balance, Functional Activities, Functional Mobility,Gait, Posture,Strength Goals strength Short Term Goal (STG) Pt will be indep w/HEP STG Duration 07/23 Patent Drafter Goal (LTG) Pt will score at least 4+/5 on all BLE MMT and at least 3/5 LPm to show improved strength and stability to allow return to work and activity. LTG Duration 09/12 SLS Short Term Goal (STG) Pt will stand SLS for 10 sec B to show improved balance STG Duration 07/27 Patent Drafter Goal (LTG) Pt will stand SLS for 20 sec B to show improved balance LTG Duration 09/12/24 FGA Short Term Goal (STG) Pt will improve FGA to score to at least 24 to show improved balance and lower risk for falls STG Duration 07/23 Patent Drafter Goal (LTG) Pt will improve FGA to score to at least 28 to show improved balance and lower risk for falls LTG Duration 09/12 Assessment Summary Assessment Pt presents to PT after CVA 7 months ago that affected his R side w/RUE and LE weakness and some R visual deficit. He already started OT for RUE and is presenting to PT for RLE care. 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 He reports memory issues and may benefit from ASSOCIATE SPA DIRECTOR to help w/ this and doctor was messaged re: this. He would benefit from skilled PT to address RLE weakenss and dec core strength and balance deficits. Physical Therapy Plan Frequency and Duration Frequency of Treatment 1-2x/wk Duration of treatment (weeks) 12 Plan of Care Start Date 06/20/24 Plan of Care End Date 09/12/24 Therapeutic Interventions Therapeutic Interventions Balance Training,Coordination Training,Gait Training,Home Exercise Program,Manual Therapy,Neuromuscular Re- education,Patient/Caregiver Education,Self-Care/Home Management,Taping,Therapeutic Activities,Therapeutic Exercises Next Visit Focus/Plan Next Note Type Treatment Note Next Visit Plan review exercises, add lunges, backwards walk; balance board, bosu strengthening exercises, hurdles and progress to w/ foam as able
--- NOTE | 2024-06-20 17:55 | PT.OPPOC ---
Physical, Occupational & Speech Therapy At [facility] Current Diagnoses Type 2 diabetes mellitus without complications (06/20/24) Nicotine dependence, chewing tobacco, uncomplicated (06/20/24) Essential (primary) hypertension (06/20/24) Atherosclerotic heart disease of [place] coronary artery without angina pectoris (06/20/24) Personal history of transient ischemic attack (TIA), and cerebral infarction without residual deficits (06/20/24) Arthrodesis status (06/20/24) Visit Care Team Role Provider Type Lois Chowdary DO Attending Provider Physician Family Provider Primary Care Provider Referring Provider Specialty: Family Practice Address: [address] [place] [address], [address], [facility] Email: [email or web address] Plan Of Care PT-OP-B Current Condition Start: 05/31/24 10:20 Freq: Status: Active Protocol: Document 06/20/24 14:33 [facility] (Rec: 06/20/24 18:01 [facility] [id number]) Current Condition History of Current Condition Onset Date November 2023 Current Complaints CVA affecting R side History of Current Condition Pt had CVA in November. Pt reports he wants his RUE to be able to do more. He wants exercsies for getting R arm working and Rleg. In November, he barely had use of RUE and LE. Short term memory is affected . Pt reports w/R eye has some difficulty seeing out to the side of him. Pt reports normal day to day functions he can do. Fine detail things are the trickiest. 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 Does have hx of 2 heart attacks also. Pt reports balance affected by stroke but is better since. Feels like he is almost to the point whee he could start jogging. Walking 3 miles to and 3 miles back from store about 5 days a week . Prior to CVA was not extremely active besides job. Treatment Goals Patient/Caregiver Goals Improve strength PT-OP-T Assessment and Plan Start: 05/31/24 10:20 Freq: Status: Active Protocol: Document 06/20/24 14:33 [facility] (Rec: 06/20/24 18:01 [facility] [id number]) Physical Therapy Assessment Rehab Potential Rehabilitation Potential Good Evaluation Complexity Number of Personal Factors/Comorbidities 1-2 Number of Body Systems Impaired 4 or More Clinical Presentation at Evaluation Evolving Impairments Impairments Activity Tolerance,Balance, Functional Activities, Functional Mobility,Gait, Posture,Strength Goals strength Short Term Goal (STG) Pt will be indep w/HEP STG Duration 07/23 [facility] Goal (LTG) Pt will score at least 4+/5 on all BLE MMT and at least 3/5 LPm to show improved strength and stability to allow return to work and activity. LTG Duration 09/12 SLS Short Term Goal (STG) Pt will stand SLS for 10 sec B to show improved balance STG Duration 07/27 [facility] Goal (LTG) Pt will stand SLS for 20 sec B to show improved balance LTG Duration 09/12/24 FGA Short Term Goal (STG) Pt will improve FGA to score to at least 24 to show improved balance and lower risk for falls STG Duration 07/23 [facility] Goal (LTG) Pt will improve FGA to score to at least 28 to show improved balance and lower risk for falls LTG Duration 09/12 Assessment Summary Assessment Pt presents to PT after CVA 7 months ago that affected his R side w/RUE and LE weakness and some R visual deficit. He already started OT for RUE and is presenting to PT for RLE care. 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 He reports memory issues and may benefit from BOILER TENDER to help w/ this and doctor was messaged re: this. He would benefit from skilled PT to address RLE weakenss and dec core strength and balance deficits. Physical Therapy Plan Frequency and Duration Frequency of Treatment 1-2x/wk Duration of treatment (weeks) 12 Plan of Care Start Date 06/20/24 Plan of Care End Date 09/12/24 Therapeutic Interventions Therapeutic Interventions Balance Training,Coordination Training,Gait Training,Home Exercise Program,Manual Therapy,Neuromuscular Re- education,Patient/Caregiver Education,Self-Care/Home Management,Taping,Therapeutic Activities,Therapeutic Exercises Next Visit Focus/Plan Next Note Type Treatment Note Next Visit Plan review exercises, add lunges, backwards walk; balance board, bosu strengthening exercises, hurdles and progress to w/ foam as able Plan of Care Dates Plan of Care Start Date 06/20/24 Plan of Care End Date 09/12/24 Electronically Signed by: Lupe Soni, PT 06/21/24 1055 If you are in agreement with this Plan of Care, please return a signed and dated copy. I have reviewed this Plan of Care and certify that the skilled therapy services above are required to meet the patient?s needs. Physician Signature Date Printed Name and Credentials Clinical Instructor Signature Printed Name and Credentials
--- NOTE | 2024-06-27 15:15 | PT.OTN ---
Current Diagnoses Type 2 diabetes mellitus without complications (06/27/24) Nicotine dependence, chewing tobacco, uncomplicated (06/27/24) Essential (primary) hypertension (06/27/24) Atherosclerotic heart disease of [place] coronary artery without angina pectoris (06/27/24) Personal history of transient ischemic attack (TIA), and cerebral infarction without residual deficits (06/27/24) Arthrodesis status (06/27/24) Physical Therapy Treatment Note PT-OP-A Visit Information Start: 05/31/24 10:20 Freq: Status: Active Protocol: Document 06/27/24 14:34 [facility] (Rec: 06/27/24 15:15 [facility] [id number]) Out-Patient Physical Therapy Visit Information Visit Information Visit Type Treatment Note Visit Note 24 total OT/PT combined Visit Start Time 14:34 Visit Stop Time 15:14 Visit Number 2 Number of LINUX ENGINEER Visits 0 PT-OP-B Current Condition Start: 05/31/24 10:20 Freq: Status: Active Protocol: Document 06/20/24 14:33 [facility] (Rec: 06/20/24 18:01 [facility] [id number]) Current Condition History of Current Condition Onset Date November 2023 Current Complaints CVA affecting R side History of Current Condition Pt had CVA in November. Pt reports he wants his RUE to be able to do more. He wants exercsies for getting R arm working and Rleg. In November, he barely had use of RUE and LE. Short term memory is affected . Pt reports w/R eye has some difficulty seeing out to the side of him. Pt reports normal day to day functions he can do. Fine detail things are the trickiest. 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 Does have hx of 2 heart attacks also. Pt reports balance affected by stroke but is better since. Feels like he is almost to the point whee he could start jogging. Walking 3 miles to and 3 miles back from store about 5 days a week . Prior to CVA was not extremely active besides job. Treatment Goals Patient/Caregiver Goals Improve strength PT-OP-C Subjective Start: 05/31/24 10:20 Freq: Status: Active Protocol: Document 06/27/24 14:34 [facility] (Rec: 06/27/24 15:15 [facility] [id number]) OP-PT Subjective Patient Comments Patient Comments Pt reports compliance w/HEP PT-OP-D Balance Start: 05/31/24 10:20 Freq: Status: Active Protocol: Document 06/20/24 14:33 [facility] (Rec: 06/20/24 18:01 [facility] [id number]) Balance Tests Single Limb Standing Single Limb- Right 3 sec Single Limb- Left 8 sec PT-OP-E Functional Tests Start: 05/31/24 10:20 Freq: Status: Active Protocol: Document 06/20/24 14:33 [facility] (Rec: 06/20/24 18:01 [facility] [id number]) Functional Tests 30 Second Sit to Stand Test Score 15 Functional Gait Assessment Score 21 PT-OP-M Strength Start: 05/31/24 10:20 Freq: Status: Active Protocol: Document 06/20/24 14:33 [facility] (Rec: 06/20/24 18:01 [facility] [id number]) Hip Strength Hip Manual Muscle Testing Right Flexion (L2) 4- Good- Extension (S1) 4+ Good+ Abduction 4 Good External Rotation 4+ Good+ Internal Rotation 5 Normal Left Flexion (L2) 4+ Good+ Extension (S1) 5 Normal Abduction 5 Normal External Rotation 5 Normal Internal Rotation 5 Normal Knee Strength Knee Manual Muscle Testing Right Flexion (S2) 5 Normal Extension (L3) 5 Normal Left Flexion (S2) 5 Normal Extension (L3) 5 Normal Ankle/Foot Strength Ankle and Foot Manual Muscle Testing Right Dorsiflexion (L4) 5 Normal Plantarflexion (S1) 4+ Good+ Comments 20 heel raises min cues for avoiding knee bend Left Dorsiflexion (L4) 5 Normal Plantarflexion (S1) 5 Normal Comments 20 heel raises min cues for avoiding knee bend especially last 6reps PT-OP-Q Treatments Start: 05/31/24 10:20 Freq: Status: Active Protocol: Document 06/27/24 14:34 [facility] (Rec: 06/27/24 15:15 [facility] [id number]) Gym Equipment Shuttle Recovery Unilateral Squats Details B Resistance 50# Shuttle Recovery Platform Stable Reps/Time 15 ea Bilateral Squats Resistance 100# (navy) Shuttle Recovery Platform Stable Reps/Time 15 Shuttle Balance red clips Comments fwd & side: WBOS fwd: staggered stance B Therapeutic Exercises Standing Exercises DF Side bilateral Reps/Minutes 20 Comments back at rail resisted walk Standing Exercise Name fwd/back Side bilateral Equipment Used L2 Reps/Minutes 20ft x2 ea lunges Side bilateral Reps/Minutes 10 sidestep Side bilateral Equipment Used L2 Reps/Minutes 20ftx2 sit to stand Side bilateral Reps/Minutes x15 Comments cues controlled descent heel raises Standing Exercise Name SL Side bilateral Reps/Minutes 20 ea Neuro Re-Education Treatment Balance Activities backwards walk Comments 2x20ft ea bosu Comments 1. step up fwd x10 B 2. sidestep over x10 B 3. balance blue side and black side 4. squat on blue side x10 hurdles Comments 1.fwd recip over hurdles x2 2. fwd recip over hurdles w/ foam btwn x8 tandem Comments 1. B trials 2.fwd walk 15ftx2 w/ 2 fingers on rail PT-OP-T Assessment and Plan Start: 05/31/24 10:20 Freq: Status: Active Protocol: Document 06/27/24 14:34 [facility] (Rec: 06/27/24 15:15 [facility] [id number]) Physical Therapy Assessment Goals strength Short Term Goal (STG) Pt will be indep w/HEP STG Duration 07/23 Senior Care Goal (LTG) Pt will score at least 4+/5 on all BLE MMT and at least 3/5 LPm to show improved strength and stability to allow return to work and activity. LTG Duration 09/12 SLS Short Term Goal (STG) Pt will stand SLS for 10 sec B to show improved balance STG Duration 07/27 Senior Care Goal (LTG) Pt will stand SLS for 20 sec B to show improved balance LTG Duration 09/12/24 FGA Short Term Goal (STG) Pt will improve FGA to score to at least 24 to show improved balance and lower risk for falls STG Duration 07/23 Senior Care Goal (LTG) Pt will improve FGA to score to at least 28 to show improved balance and lower risk for falls LTG Duration 09/12 Assessment Summary Assessment Pt challenged and fatigued by session. Significant difficulty w/shuttle balance and bosu exercises. Added lunges and backwards walk to HEP Physical Therapy Plan Frequency and Duration Frequency of Treatment 1-2x/wk Duration of treatment (weeks) 12 Plan of Care Start Date 06/20/24 Plan of Care End Date 09/12/24 Next Visit Focus/Plan Next Note Type Treatment Note Next Visit Plan review exercises, review lunges, backwards walk; balance board, bosu strengthening exercises, hurdles w/foam
--- NOTE | 2024-07-18 12:35 | PT.OTN ---
Current Diagnoses Type 2 diabetes mellitus without complications (07/18/24) Nicotine dependence, chewing tobacco, uncomplicated (07/18/24) Essential (primary) hypertension (07/18/24) Atherosclerotic heart disease of [place] coronary artery without angina pectoris (07/18/24) Personal history of transient ischemic attack (TIA), and cerebral infarction without residual deficits (07/18/24) Arthrodesis status (07/18/24) Physical Therapy Treatment Note PT-OP-A Visit Information Start: 05/31/24 10:20 Freq: Status: Active Protocol: Document 07/18/24 11:41 NBM (Rec: 07/18/24 12:35 [facility] [id number]) Out-Patient Physical Therapy Visit Information Visit Information Visit Type Treatment Note Visit Note 24 total OT/PT combined Visit Start Time 11:38 Visit Stop Time 12:22 Visit Number 5 Number of JBOSS ARCHITECT Visits 3 PT-OP-B Current Condition Start: 05/31/24 10:20 Freq: Status: Active Protocol: Document 06/20/24 14:33 [facility] (Rec: 06/20/24 18:01 [facility] [id number]) Current Condition History of Current Condition Onset Date November 2023 Current Complaints CVA affecting R side History of Current Condition Pt had CVA in November. Pt reports he wants his RUE to be able to do more. He wants exercsies for getting R arm working and Rleg. In November, he barely had use of RUE and LE. Short term memory is affected . Pt reports w/R eye has some difficulty seeing out to the side of him. Pt reports normal day to day functions he can do. Fine detail things are the trickiest. 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 Does have hx of 2 heart attacks also. Pt reports balance affected by stroke but is better since. Feels like he is almost to the point whee he could start jogging. Walking 3 miles to and 3 miles back from store about 5 days a week . Prior to CVA was not extremely active besides job. Treatment Goals Patient/Caregiver Goals Improve strength PT-OP-C Subjective Start: 05/31/24 10:20 Freq: Status: Active Protocol: Document 07/18/24 11:41 NBM (Rec: 07/18/24 12:35 [facility] [id number]) OP-PT Subjective Patient Comments Patient Comments Maksim reports he's tired after OT and was throwing a ball and had to reach down to catch it, and thinks that's why he' s limping on his R leg now. He also had only 3 hours sleep and has anxiety related to sleep. He's been walking two miles ea day and notices if he misses a day or two he's setback, so he's doing his ex' s come rain or shine. He hasn' t practiced corner balance because he's not sure his house is safe for it. His mom will visit this week with pets which gives him some anxiety. Pt reports the R eyesight is improving. PT-OP-D Balance Start: 05/31/24 10:20 Freq: Status: Active Protocol: Document 06/20/24 14:33 [facility] (Rec: 06/20/24 18:01 [facility] [id number]) Balance Tests Single Limb Standing Single Limb- Right 3 sec Single Limb- Left 8 sec PT-OP-E Functional Tests Start: 05/31/24 10:20 Freq: Status: Active Protocol: Document 06/20/24 14:33 [facility] (Rec: 06/20/24 18:01 [facility] [id number]) Functional Tests 30 Second Sit to Stand Test Score 15 Functional Gait Assessment Score 21 PT-OP-M Strength Start: 05/31/24 10:20 Freq: Status: Active Protocol: Document 06/20/24 14:33 [facility] (Rec: 06/20/24 18:01 [facility] [id number]) Hip Strength Hip Manual Muscle Testing Right Flexion (L2) 4- Good- Extension (S1) 4+ Good+ Abduction 4 Good External Rotation 4+ Good+ Internal Rotation 5 Normal Left Flexion (L2) 4+ Good+ Extension (S1) 5 Normal Abduction 5 Normal External Rotation 5 Normal Internal Rotation 5 Normal Knee Strength Knee Manual Muscle Testing Right Flexion (S2) 5 Normal Extension (L3) 5 Normal Left Flexion (S2) 5 Normal Extension (L3) 5 Normal Ankle/Foot Strength Ankle and Foot Manual Muscle Testing Right Dorsiflexion (L4) 5 Normal Plantarflexion (S1) 4+ Good+ Comments 20 heel raises min cues for avoiding knee bend Left Dorsiflexion (L4) 5 Normal Plantarflexion (S1) 5 Normal Comments 20 heel raises min cues for avoiding knee bend especially last 6reps PT-OP-Q Treatments Start: 05/31/24 10:20 Freq: Status: Active Protocol: Document 07/18/24 11:41 [facility] (Rec: 07/18/24 12:35 [facility] [id number]) Therapeutic Exercises Sitting Exercises hamstring stretch Sitting Exercise Name added to HEP Side bilateral Reps/Minutes 30s ea Comments Pt stretching prior to walks. Standing Exercises quad stretch Standing Exercise Name added to HEP Side bilateral Equipment Used w and wo handrail Reps/Minutes x30s ea Comments cues for LE alignment, hand placement, gentle pain-free range hamstring stretch Standing Exercise Name added to HEP Side bilateral Equipment Used w and wo handrail Reps/Minutes x30s ea Comments cues for gentle, pain-free range Neuro Re-Education Treatment Balance Activities SLS Details b trials Surface firm Equipment handrail bars, GB Reps/Duration 3 trials ea Comments R stance 4s, 4s,11s L stance 25s, 12s, 6s tandem Details 1. stable 2. therapads Surface firm, uneven Equipment GB CGA, no UE support Reps/Duration 15ft x4 ea Comments fwd walk: cues for upright posture with distant focal point. PT-OP-T Assessment and Plan Start: 05/31/24 10:20 Freq: Status: Active Protocol: Document 07/18/24 11:41 [facility] (Rec: 07/18/24 12:35 [facility] [id number]) Physical Therapy Assessment Goals strength Short Term Goal (STG) Pt will be indep w/HEP 07/18: Pt is compliant with HEP and will start doing corner balance. STG Duration 07/23 Care Home Goal (LTG) Pt will score at least 4+/5 on all BLE MMT and at least 3/5 LPm to show improved strength and stability to allow return to work and activity. LTG Duration 09/12 SLS Short Term Goal (STG) Pt will stand SLS for 10 sec B to show improved balance 07/18: R stance 4s, 4s,11s; L stance 25s, 12s, 6s STG Duration 07/27 - achieved 07/18/24 Care Home Goal (LTG) Pt will stand SLS for 20 sec B to show improved balance 07/18: R stance max 11s, L stance max 25s LTG Duration 09/12/24 (progressin07/18/24) FGA Short Term Goal (STG) Pt will improve FGA to score to at least 24 to show improved balance and lower risk for falls STG Duration 07/23 Mannequin Coloring Artist Goal (LTG) Pt will improve FGA to score to at least 28 to show improved balance and lower risk for falls LTG Duration 09/12 Assessment Summary Assessment Cues for increasing stance time on RLE improves tandem walking control and balance, and pt self-recovers from 1 LOB on RLE with improving confidence. SLS STG 10s ea achieved with R 11s and L 25s today, and LTG of 20s achieved on L with 25s today. Pt requires cues for stretching hamstring and quadruceps for LE alignment and upright posture - added to HEP, HO given. Pt is encouraged to start corner balance HEP previously issued with WBOS and Eyes Open then Eyes Closed 30s each at home to build up confidence and expresses agreement. Physical Therapy Plan Frequency and Duration Frequency of Treatment 1-2x/wk Duration of treatment (weeks) 12 Plan of Care Start Date 06/20/24 Plan of Care End Date 09/12/24 Therapeutic Interventions Therapeutic Interventions Balance Training,Coordination Training,Gait Training,Home Exercise Program,Manual Therapy,Neuromuscular Re- education,Patient/Caregiver Education,Self-Care/Home Management,Taping,Therapeutic Activities,Therapeutic Exercises Next Visit Focus/Plan Next Note Type Treatment Note Next Visit Plan review exercises, review lunges, backwards walk; balance board, bosu strengthening exercises, hurdles w/foam
--- NOTE | 2024-07-26 11:30 | PT.OTN ---
Current Diagnoses Type 2 diabetes mellitus without complications (07/26/24) Nicotine dependence, chewing tobacco, uncomplicated (07/26/24) Essential (primary) hypertension (07/26/24) Atherosclerotic heart disease of [place] coronary artery without angina pectoris (07/26/24) Personal history of transient ischemic attack (TIA), and cerebral infarction without residual deficits (07/26/24) Arthrodesis status (07/26/24) Physical Therapy Treatment Note PT-OP-A Visit Information Start: 05/31/24 10:20 Freq: Status: Active Protocol: Document 07/26/24 10:48 [facility] (Rec: 07/26/24 11:30 [facility] [id number]) Out-Patient Physical Therapy Visit Information Visit Information Visit Type Progress Note Visit Note 24 total OT/PT combined Visit Start Time 10:50 Visit Stop Time 11:30 Visit Number 6 Number of STULL HEWER Visits 0 PT-OP-B Current Condition Start: 05/31/24 10:20 Freq: Status: Active Protocol: Document 06/20/24 14:33 [facility] (Rec: 06/20/24 18:01 [facility] [id number]) Current Condition History of Current Condition Onset Date November 2023 Current Complaints CVA affecting R side History of Current Condition Pt had CVA in November. Pt reports he wants his RUE to be able to do more. He wants exercsies for getting R arm working and Rleg. In November, he barely had use of RUE and LE. Short term memory is affected . Pt reports w/R eye has some difficulty seeing out to the side of him. Pt reports normal day to day functions he can do. Fine detail things are the trickiest. 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 Does have hx of 2 heart attacks also. Pt reports balance affected by stroke but is better since. Feels like he is almost to the point whee he could start jogging. Walking 3 miles to and 3 miles back from store about 5 days a week . Prior to CVA was not extremely active besides job. Treatment Goals Patient/Caregiver Goals Improve strength PT-OP-C Subjective Start: 05/31/24 10:20 Freq: Status: Active Protocol: Document 07/26/24 10:48 [facility] (Rec: 07/26/24 11:30 [facility] [id number]) OP-PT Subjective Patient Comments Patient Comments pt reports he is getting over a cold so feels like that is making him a little weaker PT-OP-D Balance Start: 05/31/24 10:20 Freq: Status: Active Protocol: Document 07/26/24 10:48 [facility] (Rec: 07/26/24 11:30 [facility] [id number]) Balance Tests Single Limb Standing Single Limb- Right 5 sec Single Limb- Left 30 sec PT-OP-E Functional Tests Start: 05/31/24 10:20 Freq: Status: Active Protocol: Document 07/26/24 10:48 [facility] (Rec: 07/26/24 11:30 [facility] [id number]) Functional Tests Functional Gait Assessment Score 25 PT-OP-M Strength Start: 05/31/24 10:20 Freq: Status: Active Protocol: Document 07/26/24 10:48 [facility] (Rec: 07/26/24 11:30 [facility] [id number]) Hip Strength Hip Manual Muscle Testing Right Flexion (L2) 4+ Good+ Extension (S1) 5 Normal Abduction 4+ Good+ Adduction 5 Normal External Rotation 5 Normal Internal Rotation 5 Normal Comments LPM: B AP 0/5; PA 2/5 Left Flexion (L2) 4+ Good+ Extension (S1) 5 Normal Abduction 5 Normal Adduction 5 Normal External Rotation 5 Normal Internal Rotation 5 Normal Knee Strength Knee Manual Muscle Testing Right Flexion (S2) 5 Normal Extension (L3) 5 Normal Left Flexion (S2) 5 Normal Extension (L3) 5 Normal Ankle/Foot Strength Ankle and Foot Manual Muscle Testing Right Dorsiflexion (L4) 5 Normal Plantarflexion (S1) 5 Normal Comments 20 heel raises min cues for avoiding knee bend but can keep knee straight B Left Dorsiflexion (L4) 5 Normal Plantarflexion (S1) 5 Normal Comments 20 heel raises cues to avoid knee flex PT-OP-Q Treatments Start: 05/31/24 10:20 Freq: Status: Active Protocol: Document 07/26/24 10:48 [facility] (Rec: 07/26/24 11:30 [facility] [id number]) Therapeutic Exercises Supine Exercises core Supine Exercise Name DL isometric w/DF Side bilateral Reps/Minutes 30 sec Prone Exercises plank Prone Exercise Name forearm and knees Side bilateral Reps/Minutes 20 secx2 Comments cues for positioning Sidelying Exercises sideplank Sidelying Exercise Name forarm and knees Side bilateral Reps/Minutes 15 sec Sitting Exercises sit backs Sitting Exercise Name on floor w/knees bent Side bilateral Reps/Minutes 2x3 Comments cues back straight-PT guard behind Standing Exercises paloff press Standing Exercise Name in mini squat Side bilateral Equipment Used 2 orange bands Reps/Minutes 15 ea Other Exercises isometrics Other Exercise Name B MMT and LPM quadruped Other Exercise Name hip ext Side bilateral Reps/Minutes 10 ea Comments cues core Neuro Re-Education Treatment Balance Activities grapevine Details b Reps/Duration 2x20ft ea testing Comments FGA bosu Comments 1. step up fwd x10 B 2. sidestep up and over x10 B 3. balance blue side and black side 4. squat on blue side x15 5. wt shifts fwd/baclk and lat 10 ea SLS Details B trials Surface firm PT-OP-T Assessment and Plan Start: 05/31/24 10:20 Freq: Status: Active Protocol: Document 07/26/24 10:48 [facility] (Rec: 07/26/24 11:30 [facility] [id number]) Physical Therapy Assessment Goals strength Short Term Goal (STG) Pt will be indep w/HEP 07/18: Pt is compliant with HEP and will start doing corner balance. STG Duration achieved advancing as able Longterm Goal (LTG) Pt will score at least 4+/5 on all BLE MMT and at least 3/5 LPm to show improved strength and stability to allow return to work and activity. 07/26-improving LTG Duration 09/12 SLS Short Term Goal (STG) Pt will stand SLS for 10 sec B to show improved balance 07/18: R stance 4s, 4s,11s; L stance 25s, 12s, 6s STG Duration achieved 07/18/24 Weight Yardage Checker Goal (LTG) Pt will stand SLS for 20 sec B to show improved balance 07/18: R stance max 11s, L stance max 25s LTG Duration 09/12/24 (progressin07/18/24) FGA Short Term Goal (STG) Pt will improve FGA to score to at least 24 to show improved balance and lower risk for falls STG Duration achieved to 25 Longterm Goal (LTG) Pt will improve FGA to score to at least 28 to show improved balance and lower risk for falls LTG Duration 09/12 Assessment Summary Assessment pt making good progress w/PT w / improved balance and gait but does still have dec balance and strength especially core stability. Still fatigues w/PT session. COnt PT for strength and balance and gait. Physical Therapy Plan Frequency and Duration Frequency of Treatment 1-2x/wk Duration of treatment (weeks) 12 Plan of Care Start Date 06/20/24 Plan of Care End Date 09/12/24 Therapeutic Interventions Therapeutic Interventions Balance Training,Coordination Training,Gait Training,Home Exercise Program,Manual Therapy,Neuromuscular Re- education,Patient/Caregiver Education,Self-Care/Home Management,Taping,Therapeutic Activities,Therapeutic Exercises Next Visit Focus/Plan Next Note Type Treatment Note Next Visit Plan bosu exercises, core exercises , advanced dynamic balance
--- NOTE | 2024-08-01 11:39 | PT.OTN ---
Current Diagnoses Type 2 diabetes mellitus without complications (08/01/24) Nicotine dependence, chewing tobacco, uncomplicated (08/01/24) Essential (primary) hypertension (08/01/24) Atherosclerotic heart disease of [place] coronary artery without angina pectoris (08/01/24) Personal history of transient ischemic attack (TIA), and cerebral infarction without residual deficits (08/01/24) Arthrodesis status (08/01/24) Physical Therapy Treatment Note PT-OP-A Visit Information Start: 05/31/24 10:20 Freq: Status: Active Protocol: Document 08/01/24 10:49 [facility] (Rec: 08/01/24 11:39 [facility] [id number]) Out-Patient Physical Therapy Visit Information Visit Information Visit Type Treatment Note Visit Note 24 total OT/PT combined Visit Start Time 10:50 Visit Stop Time 11:30 Visit Number 7 Number of MARKET INTELLIGENCE CONSULTANT Visits 0 PT-OP-B Current Condition Start: 05/31/24 10:20 Freq: Status: Active Protocol: Document 06/20/24 14:33 [facility] (Rec: 06/20/24 18:01 [facility] [id number]) Current Condition History of Current Condition Onset Date November 2023 Current Complaints CVA affecting R side History of Current Condition Pt had CVA in November. Pt reports he wants his RUE to be able to do more. He wants exercsies for getting R arm working and Rleg. In November, he barely had use of RUE and LE. Short term memory is affected . Pt reports w/R eye has some difficulty seeing out to the side of him. Pt reports normal day to day functions he can do. Fine detail things are the trickiest. 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 Does have hx of 2 heart attacks also. Pt reports balance affected by stroke but is better since. Feels like he is almost to the point whee he could start jogging. Walking 3 miles to and 3 miles back from store about 5 days a week . Prior to CVA was not extremely active besides job. Treatment Goals Patient/Caregiver Goals Improve strength PT-OP-C Subjective Start: 05/31/24 10:20 Freq: Status: Active Protocol: Document 08/01/24 10:49 [facility] (Rec: 08/01/24 11:39 [facility] [id number]) OP-PT Subjective Patient Comments Patient Comments Pt reports he was tired for the rest of the day after last session PT-OP-D Balance Start: 05/31/24 10:20 Freq: Status: Active Protocol: Document 07/26/24 10:48 [facility] (Rec: 07/26/24 11:30 [facility] [id number]) Balance Tests Single Limb Standing Single Limb- Right 5 sec Single Limb- Left 30 sec PT-OP-E Functional Tests Start: 05/31/24 10:20 Freq: Status: Active Protocol: Document 07/26/24 10:48 [facility] (Rec: 07/26/24 11:30 [facility] [id number]) Functional Tests Functional Gait Assessment Score 25 PT-OP-M Strength Start: 05/31/24 10:20 Freq: Status: Active Protocol: Document 07/26/24 10:48 [facility] (Rec: 07/26/24 11:30 [facility] [id number]) Hip Strength Hip Manual Muscle Testing Right Flexion (L2) 4+ Good+ Extension (S1) 5 Normal Abduction 4+ Good+ Adduction 5 Normal External Rotation 5 Normal Internal Rotation 5 Normal Comments LPM: B AP 0/5; PA 2/5 Left Flexion (L2) 4+ Good+ Extension (S1) 5 Normal Abduction 5 Normal Adduction 5 Normal External Rotation 5 Normal Internal Rotation 5 Normal Knee Strength Knee Manual Muscle Testing Right Flexion (S2) 5 Normal Extension (L3) 5 Normal Left Flexion (S2) 5 Normal Extension (L3) 5 Normal Ankle/Foot Strength Ankle and Foot Manual Muscle Testing Right Dorsiflexion (L4) 5 Normal Plantarflexion (S1) 5 Normal Comments 20 heel raises min cues for avoiding knee bend but can keep knee straight B Left Dorsiflexion (L4) 5 Normal Plantarflexion (S1) 5 Normal Comments 20 heel raises cues to avoid knee flex PT-OP-Q Treatments Start: 05/31/24 10:20 Freq: Status: Active Protocol: Document 08/01/24 10:49 [facility] (Rec: 08/01/24 11:39 [facility] [id number]) Therapeutic Exercises Prone Exercises plank Prone Exercise Name forearm and knees Side bilateral Reps/Minutes 20 secx2 Comments cues for positioning Sidelying Exercises sideplank Sidelying Exercise Name forarm and knees Side bilateral Reps/Minutes 15 sec Sitting Exercises sit backs Sitting Exercise Name on floor w/knees bent Side bilateral Reps/Minutes 10 Comments cues back straight-PT guard behind Standing Exercises DF Standing Exercise Name back against wall Side bilateral Reps/Minutes 15 heel raises Standing Exercise Name on step Side bilateral Equipment Used rails Reps/Minutes 15 Other Exercises quadruped Other Exercise Name hip ext Side bilateral Reps/Minutes 12 ea Comments cues core Neuro Re-Education Treatment Balance Activities grapevine Details b Reps/Duration 2x20ft ea backwards walk Details EC Comments 2x20ft ea bosu Comments 1. step up fwd x10 B 2. sidestep up and over x10 B 3. balance blue side and black side w/head turns and EC trials 4. squat on blue side and black side x15 5. fwd lunges x 10 ea SLS Comments w/tap 4 points-rail prn x10 B PT-OP-T Assessment and Plan Start: 05/31/24 10:20 Freq: Status: Active Protocol: Document 08/01/24 10:49 [facility] (Rec: 08/01/24 11:39 [facility] [id number]) Physical Therapy Assessment Goals strength Short Term Goal (STG) Pt will be indep w/HEP 07/18: Pt is compliant with HEP and will start doing corner balance. STG Duration achieved advancing as able Educational Program Assistant Goal (LTG) Pt will score at least 4+/5 on all BLE MMT and at least 3/5 LPm to show improved strength and stability to allow return to work and activity. 07/26-improving LTG Duration 09/12 SLS Short Term Goal (STG) Pt will stand SLS for 10 sec B to show improved balance 07/18: R stance 4s, 4s,11s; L stance 25s, 12s, 6s STG Duration achieved 07/18/24 M[facility] Goal (LTG) Pt will stand SLS for 20 sec B to show improved balance 07/18: R stance max 11s, L stance max 25s LTG Duration 09/12/24 (progressin07/18/24) FGA Short Term Goal (STG) Pt will improve FGA to score to at least 24 to show improved balance and lower risk for falls STG Duration achieved to 25 [facility] Goal (LTG) Pt will improve FGA to score to at least 28 to show improved balance and lower risk for falls LTG Duration 09/12 Assessment Summary Assessment pt did better w/bosu exercises today but is still very challenged by them along w/ core exercises. Physical Therapy Plan Frequency and Duration Frequency of Treatment 1-2x/wk Duration of treatment (weeks) 12 Plan of Care Start Date 06/20/24 Plan of Care End Date 09/12/24 Next Visit Focus/Plan Next Note Type Treatment Note Next Visit Plan bosu exercises, core exercises , advanced dynamic balance
--- NOTE | 2024-08-08 11:38 | PT.OTN ---
Current Diagnoses Type 2 diabetes mellitus without complications (08/08/24) Nicotine dependence, chewing tobacco, uncomplicated (08/08/24) Essential (primary) hypertension (08/08/24) Atherosclerotic heart disease of [place] coronary artery without angina pectoris (08/08/24) Personal history of transient ischemic attack (TIA), and cerebral infarction without residual deficits (08/08/24) Arthrodesis status (08/08/24) Physical Therapy Treatment Note PT-OP-A Visit Information Start: 05/31/24 10:20 Freq: Status: Active Protocol: Document 08/08/24 10:43 AB (Rec: 08/08/24 11:38 AB [id number]) Out-Patient Physical Therapy Visit Information Visit Information Visit Type Treatment Note Visit Note 24 total OT/PT combined Visit Start Time 10:47 Visit Stop Time 11:30 Visit Number 8 Number of NUTRITION EDUCATOR Visits 1 PT-OP-B Current Condition Start: 05/31/24 10:20 Freq: Status: Active Protocol: Document 06/20/24 14:33 [facility] (Rec: 06/20/24 18:01 [facility] [id number]) Current Condition History of Current Condition Onset Date November 2023 Current Complaints CVA affecting R side History of Current Condition Pt had CVA in November. Pt reports he wants his RUE to be able to do more. He wants exercsies for getting R arm working and Rleg. In November, he barely had use of RUE and LE. Short term memory is affected . Pt reports w/R eye has some difficulty seeing out to the side of him. Pt reports normal day to day functions he can do. Fine detail things are the trickiest. 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 Does have hx of 2 heart attacks also. Pt reports balance affected by stroke but is better since. Feels like he is almost to the point whee he could start jogging. Walking 3 miles to and 3 miles back from store about 5 days a week . Prior to CVA was not extremely active besides job. Treatment Goals Patient/Caregiver Goals Improve strength PT-OP-C Subjective Start: 05/31/24 10:20 Freq: Status: Active Protocol: Document 08/08/24 10:43 AB (Rec: 08/08/24 11:38 AB [id number]) OP-PT Subjective Patient Comments Patient Comments Patient reports he was exhuasted post previous session. Patient reports he continues to feel numbness right UE and LE. PT-OP-D Balance Start: 05/31/24 10:20 Freq: Status: Active Protocol: Document 07/26/24 10:48 [facility] (Rec: 07/26/24 11:30 [facility] [id number]) Balance Tests Single Limb Standing Single Limb- Right 5 sec Single Limb- Left 30 sec PT-OP-E Functional Tests Start: 05/31/24 10:20 Freq: Status: Active Protocol: Document 07/26/24 10:48 [facility] (Rec: 07/26/24 11:30 [facility] [id number]) Functional Tests Functional Gait Assessment Score 25 PT-OP-M Strength Start: 05/31/24 10:20 Freq: Status: Active Protocol: Document 07/26/24 10:48 [facility] (Rec: 07/26/24 11:30 [facility] [id number]) Hip Strength Hip Manual Muscle Testing Right Flexion (L2) 4+ Good+ Extension (S1) 5 Normal Abduction 4+ Good+ Adduction 5 Normal External Rotation 5 Normal Internal Rotation 5 Normal Comments LPM: B AP 0/5; PA 2/5 Left Flexion (L2) 4+ Good+ Extension (S1) 5 Normal Abduction 5 Normal Adduction 5 Normal External Rotation 5 Normal Internal Rotation 5 Normal Knee Strength Knee Manual Muscle Testing Right Flexion (S2) 5 Normal Extension (L3) 5 Normal Left Flexion (S2) 5 Normal Extension (L3) 5 Normal Ankle/Foot Strength Ankle and Foot Manual Muscle Testing Right Dorsiflexion (L4) 5 Normal Plantarflexion (S1) 5 Normal Comments 20 heel raises min cues for avoiding knee bend but can keep knee straight B Left Dorsiflexion (L4) 5 Normal Plantarflexion (S1) 5 Normal Comments 20 heel raises cues to avoid knee flex PT-OP-Q Treatments Start: 05/31/24 10:20 Freq: Status: Active Protocol: Document 08/08/24 10:43 AB (Rec: 08/08/24 11:38 AB [id number]) Gym Equipment Shuttle Recovery Unilateral Squats Details B Resistance 16# Reps/Time X10 each LE Bilateral Squats Details verbal and tactile cues for full ext without hyper ext Resistance (navy)>112# Shuttle Recovery Platform Stable Reps/Time X2 X15 Therapeutic Exercises Prone Exercises plank Prone Exercise Name forearm and knees Side bilateral Reps/Minutes 30 secx2 Comments cues for positioning Sidelying Exercises sideplank Sidelying Exercise Name forarm and knees Side bilateral Reps/Minutes 20 sec Comments verba cues Sitting Exercises seated hip abduction with band Side bilateral Resistance level 3 and level 4 band Reps/Minutes one minute each band Comments verbal and visual cues Standing Exercises heel raises Standing Exercise Name on step Side bilateral Equipment Used rails Reps/Minutes 15 bilateral then 10 single leg with UE support Comments Verbal cues to lower heels slowly and equalize weight shift Neuro Re-Education Treatment Balance Activities bosu Details Cga in parallel bars Comments 1. step up fwd x10 B 2. sidestep up and over x10 B 3. balance blue side and black side w/head turns and EC trials 4. squat on blue side and black side x15 5. fwd lunges x 10 ea PT-OP-T Assessment and Plan Start: 05/31/24 10:20 Freq: Status: Active Protocol: Document 08/08/24 10:43 AB (Rec: 08/08/24 11:38 AB [id number]) Physical Therapy Assessment Goals strength Short Term Goal (STG) Pt will be indep w/HEP 07/18: Pt is compliant with HEP and will start doing corner balance. STG Duration achieved advancing as able Custodial Goal (LTG) Pt will score at least 4+/5 on all BLE MMT and at least 3/5 LPm to show improved strength and stability to allow return to work and activity. 07/26-improving LTG Duration 09/12 SLS Short Term Goal (STG) Pt will stand SLS for 10 sec B to show improved balance 07/18: R stance 4s, 4s,11s; L stance 25s, 12s, 6s STG Duration achieved 07/18/24 Custodial Goal (LTG) Pt will stand SLS for 20 sec B to show improved balance 07/18: R stance max 11s, L stance max 25s LTG Duration 09/12/24 (progressin07/18/24) FGA Short Term Goal (STG) Pt will improve FGA to score to at least 24 to show improved balance and lower risk for falls STG Duration achieved to 25 Custodial Goal (LTG) Pt will improve FGA to score to at least 28 to show improved balance and lower risk for falls LTG Duration 09/12 Assessment Summary Assessment Patient reports having no pain end of session, reported feeling tired between exercises throughout session. Physical Therapy Plan Frequency and Duration Frequency of Treatment 1-2x/wk Duration of treatment (weeks) 12 Plan of Care Start Date 06/20/24 Plan of Care End Date 09/12/24 Next Visit Focus/Plan Next Note Type Treatment Note Next Visit Plan bosu exercises, core exercises , advanced dynamic balance
--- NOTE | 2024-09-10 14:30 | PT.OTN ---
Current Diagnoses Type 2 diabetes mellitus without complications (09/10/24) Nicotine dependence, chewing tobacco, uncomplicated (09/10/24) Essential (primary) hypertension (09/10/24) Atherosclerotic heart disease of [place] coronary artery without angina pectoris (09/10/24) Personal history of transient ischemic attack (TIA), and cerebral infarction without residual deficits (09/10/24) Arthrodesis status (09/10/24) Physical Therapy Treatment Note PT-OP-A Visit Information Start: 05/31/24 10:20 Freq: Status: Active Protocol: Document 09/10/24 13:43 [facility] (Rec: 09/10/24 14:30 [facility] [id number]) Out-Patient Physical Therapy Visit Information Visit Information Visit Type Progress Note Visit Note 24 total OT/PT combined Visit Start Time 13:45 Visit Number 9 Number of GROUND WOOD SUPERVISOR Visits 0 PT-OP-B Current Condition Start: 05/31/24 10:20 Freq: Status: Active Protocol: Document 06/20/24 14:33 [facility] (Rec: 06/20/24 18:01 [facility] [id number]) Current Condition History of Current Condition Onset Date November 2023 Current Complaints CVA affecting R side History of Current Condition Pt had CVA in November. Pt reports he wants his RUE to be able to do more. He wants exercsies for getting R arm working and Rleg. In November, he barely had use of RUE and LE. Short term memory is affected . Pt reports w/R eye has some difficulty seeing out to the side of him. Pt reports normal day to day functions he can do. Fine detail things are the trickiest. 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 Does have hx of 2 heart attacks also. Pt reports balance affected by stroke but is better since. Feels like he is almost to the point whee he could start jogging. Walking 3 miles to and 3 miles back from store about 5 days a week . Prior to CVA was not extremely active besides job. Treatment Goals Patient/Caregiver Goals Improve strength PT-OP-C Subjective Start: 05/31/24 10:20 Freq: Status: Active Protocol: Document 09/10/24 13:43 [facility] (Rec: 09/10/24 14:30 [facility] [id number]) OP-PT Subjective Patient Comments Patient Comments Was doing the exercises at home and has had grandkids which keeps him busy PT-OP-D Balance Start: 05/31/24 10:20 Freq: Status: Active Protocol: Document 09/10/24 13:43 [facility] (Rec: 09/10/24 14:30 [facility] [id number]) Balance Tests Single Limb Standing Single Limb- Right 6 sec Single Limb- Left 8 sec PT-OP-E Functional Tests Start: 05/31/24 10:20 Freq: Status: Active Protocol: Document 09/10/24 13:43 [facility] (Rec: 09/10/24 14:30 [facility] [id number]) Functional Tests Functional Gait Assessment Score 28 PT-OP-M Strength Start: 05/31/24 10:20 Freq: Status: Active Protocol: Document 09/10/24 13:43 [facility] (Rec: 09/10/24 14:30 [facility] [id number]) Hip Strength Hip Manual Muscle Testing Right Flexion (L2) 5 Normal Extension (S1) 5 Normal Abduction 5 Normal Adduction 5 Normal External Rotation 5 Normal Internal Rotation 5 Normal Comments LPM: B AP 2/5; PA 3/5 Left Flexion (L2) 5 Normal Extension (S1) 5 Normal Abduction 5 Normal Adduction 5 Normal External Rotation 5 Normal Internal Rotation 5 Normal Knee Strength Knee Manual Muscle Testing Right Flexion (S2) 5 Normal Extension (L3) 5 Normal Left Flexion (S2) 5 Normal Extension (L3) 5 Normal Ankle/Foot Strength Ankle and Foot Manual Muscle Testing Right Dorsiflexion (L4) 5 Normal Plantarflexion (S1) 5 Normal Comments 20 heel raises min cues for avoiding knee bend but can keep knee straight B Left Dorsiflexion (L4) 5 Normal Plantarflexion (S1) 5 Normal PT-OP-Q Treatments Start: 05/31/24 10:20 Freq: Status: Active Protocol: Document 09/10/24 13:43 [facility] (Rec: 09/10/24 14:30 [facility] [id number]) Therapeutic Exercises Prone Exercises plank Prone Exercise Name forearm and knees Side bilateral Reps/Minutes 30 sec Comments cues for positioning-discussed progression option to feet when ready Sidelying Exercises sideplank Sidelying Exercise Name forarm and knees Side bilateral Reps/Minutes 20 sec Comments verbal cues for set up Standing Exercises sit to stand Standing Exercise Name chair tap Side bilateral Reps/Minutes 10 Comments discussion progression w/ holding wt Other Exercises isometrics Other Exercise Name B MMT and LPM quadruped Other Exercise Name hip ext Side bilateral Reps/Minutes 12 ea Comments cues core Neuro Re-Education Treatment Balance Activities testing Comments FGA SLS Comments B trials tandem Comments B stance & fwd walk Self-Care/Home Management Treatment Activities Self-Care/Home Management Activities 132/85 BP; HR: 83 PT-OP-T Assessment and Plan Start: 05/31/24 10:20 Freq: Status: Active Protocol: Document 09/10/24 13:43 [facility] (Rec: 09/10/24 14:30 [facility] [id number]) Physical Therapy Assessment Goals strength Short Term Goal (STG) Pt will be indep w/HEP 07/18: Pt is compliant with HEP and will start doing corner balance. STG Duration achieved advancing as able Business Unit Manager Goal (LTG) Pt will score at least 4+/5 on all BLE MMT and at least 3/5 LPm to show improved strength and stability to allow return to work and activity. 07/26-improving LTG Duration mostly achieved 09/10-2/5 AP w /LPM SLS Short Term Goal (STG) Pt will stand SLS for 10 sec B to show improved balance 07/18: R stance 4s, 4s,11s; L stance 25s, 12s, 6s STG Duration achieved 07/18/24 Skilled Nursing Goal (LTG) Pt will stand SLS for 20 sec B to show improved balance 07/18: R stance max 11s, L stance max 25s 09/10-aug today on L LTG Duration some aug 23 but not feeling well FGA Short Term Goal (STG) Pt will improve FGA to score to at least 24 to show improved balance and lower risk for falls STG Duration achieved to 25 Business Unit Manager Goal (LTG) Pt will improve FGA to score to at least 28 to show improved balance and lower risk for falls LTG Duration achieved 28 on 09/10 Assessment Summary Assessment Pt made excellent progress w/ PT and shows much improved balance and strength. Given higher level core and LE strengthening and balance to cont at home and pt indep w/ this. DC to HEP at this time. Physical Therapy Plan Discharge Physical Therapy Discharge Reasons Goals Met
== END 2024-09-26 08:44 | disposition home or self-care (01) ==
LOC: PHYS 13:45
PROVIDERS: Family Provider Family Medicine; PCP Family Medicine; Referring Provider Family Medicine; Visit Provider Family Medicine
DX: Z86.73 Personal history of transient ischemic attack (TIA), and cerebral infarction without residual deficits (principal); I10 Essential (primary) hypertension; I25.10 Atherosclerotic heart disease of native coronary artery without angina pectoris; E11.9 Type 2 diabetes mellitus without complications; Z98.1 Arthrodesis status; F17.220 Nicotine dependence, chewing tobacco, uncomplicated
CPT/HCPCS: 97110; 97112; 97162; 97535